=== PATIENT | female | born 2000 | race Caucasian/White ===

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

== ENCOUNTER 2019-01-28 13:49 | Outpatient (CLI) | payer OTHER, SELFPAY ==
[2019-01-28 15:19] LABS: FREE T4 0.95 ng/dL (0.78-1.34); TSH 3.02 uIU/mL (0.52-4.13)
[2019-01-28 20:38] LABS: T3, Total 166 ng/dl (97-169)
== END 2019-01-28 14:09 ==
PROVIDERS: PCP Pediatrics; Visit Provider Student in an Organized Health Care Education/Training Program
DX: E04.9 Nontoxic goiter, unspecified (principal)
CPT/HCPCS: 36415; 84439; 84443; 84480

== ENCOUNTER 2020-01-05 01:27 | Outpatient (CLI) | payer OTHER, SELFPAY ==
[2020-01-05 17:32] LABS: FREE T4 0.95 ng/dL (0.76-1.46); TSH 3.73 uIU/mL (0.36-3.74)
[2020-01-06 18:09] LABS: T3, Total 173 ng/dL (97-169)
== END 2020-01-05 01:47 ==
PROVIDERS: PCP Pediatrics; Visit Provider Internal Medicine Endocrinology, Diabetes & Metabolism
DX: E04.9 Nontoxic goiter, unspecified (principal)
CPT/HCPCS: 36415; 84439; 84443; 84480

== ENCOUNTER 2023-04-09 10:14 | Outpatient (REF) | payer OTHER, SELFPAY ==
--- NOTE | 2023-04-09 09:00 | PAPFT_PTH ---
[facility] U#:[id number] AGE/SX: 22/ ROOM: RE04/09/[address]: Elysia John NP : 2000 BED: DIS: 04/09/2023 SPEC #: [id number] RECD: 04/09/23 12:58 STATUS: DOMONIQUE REQ #: [id number] MIRZA: 04/09/23 09:[address]: Dora CRISTOBAL,Elysia DEPT: [facility] Cytology RECD BY: Chrissie Hinton ENTERED: 04/09/23 12:58 SP TYPE: PAPFT OTHR DR: Unknown,Unknown Tissues: 1 - CX/ENDOCX FOR PAP SMEARS Procedures: PAP THIN PREP/[facility] Screening Comments: [id number] (CHLAMYDIA/GC)
[2023-04-10 14:04] LABS: Chlamydia Result Negative (Negative); GC Result Negative (Negative)
== END 2023-04-09 10:15 | disposition home or self-care (01) ==
LOC: LBN 10:14
PROVIDERS: Visit Provider Nurse Practitioner Women's Health
DX: Z12.4 Encounter for screening for malignant neoplasm of cervix (principal)
CPT/HCPCS: 87491; 87591; 88142

== ENCOUNTER 2024-09-27 08:42 | Outpatient (CLI) | payer BC, SELFPAY ==
[2024-09-27 12:30] LABS: TSH (W/Ref FT4) 4.19 uIU/mL (0.36-3.74); Vitamin D 25 Total 35 ng/mL (30-100)
[2024-09-27 13:02] LABS: FREE T4 0.71 ng/dL (0.76-1.46)
== END 2024-09-27 08:43 | disposition home or self-care (01) ==
LOC: LBO 08:43
PROVIDERS: PCP Internal Medicine Endocrinology, Diabetes & Metabolism; Visit Provider Internal Medicine Endocrinology, Diabetes & Metabolism
DX: E03.9 Hypothyroidism, unspecified (principal); E06.3 Autoimmune thyroiditis; E55.9 Vitamin D deficiency, unspecified
CPT/HCPCS: 36415; 82306; 84439; 84443